=== PATIENT | male | born 1955 | race Caucasian/White ===

== ENCOUNTER 2018-06-03 06:30 | Day surgery (SDC) | payer OTHER ==
[2018-06-02 08:59] VITALS: BMI 27.4
[~2018-06-03 06:30] MED LIST: BUPIVACAINE HCL/PF (5 MG/ML) 30 ML VIAL IJ ONE; LIDOCAINE HCL 1%, 10 MG/ML (20ML VIAL) NR ONE; ceFAZolin SODIUM 1 GM VIAL IVPB ONE
[2018-06-03 07:10] LABS: INR 0.95 (0.83-1.09); PROTHROMBIN TIME (PATIENT) 11.2 SEC (9.7-13.0)
[2018-06-03] MEDS ORDERED: MIDAZOLAM HCL 2 MG/2 ML SINGLE DOSE VIAL ONE (07:19)
[2018-06-03] MEDS ORDERED: LIDOCAINE HCL 1%, 10 MG/ML (20ML VIAL) ONE (07:20)
[2018-06-03] MEDS ORDERED: BUPIVACAINE HCL/PF 0.5% (5MG/ML) 10 ML VIAL ONE (07:20)
[2018-06-03] MEDS ORDERED: LIDOCAINE HCL/PF 2% SDV 5ML VIAL ONE ×3 (07:21→08:16)
[2018-06-03] MEDS ORDERED: PROPOFOL 20 ML ONE ×2 (07:26→08:13)
[2018-06-03] MEDS ORDERED: ONDANSETRON 4 MG/2 ML VIAL IVPUSH PRN (07:44)
[2018-06-03] MEDS ORDERED: oxyCODONE HCL 5 MG TABLET PO PRN ×2 (07:44)
[2018-06-03] MEDS ORDERED: LACTATED RINGERS SOLUTION 1,000 ML IV SCH (07:45)
[2018-06-03] MEDS ORDERED: DEXAMETHASONE SOD PHOSPHATE 4 MG/1 ML VIAL ONE (08:12)
[2018-06-03] MEDS ORDERED: KETOROLAC TROMETHAMINE 30 MG/1 ML VIAL ONE (08:12)
--- NOTE | 2018-06-03 08:18 | HP ---
Satellite [facility] - Chief Complaint Chief Complaint: right hand contracture - Past Medical History Allergies/Adverse Reactions: Allergies Allergy/AdvReac Type Severity Reaction Status Date / Time No Known Drug Allergies Allergy Verified 06/02/18 09:02 - Current Medications Current Medications: Home Medications Medication Instructions Recorded Losartan Potassium 50 mg PO DAILY 06/02/18 Satellite Physical Exam - Physical Examination Vital Signs: Vital Signs Period Temp Pulse Resp BP Sys/Mejia Pulse Ox Last 24 Hr 97.9 F 55 18 129/77 98 General Appearance: Well Nourished, Well Developed, Alert & Oriented x3 ENT: Clear Lung: Normal air movement Heart: Regular rate & rhythm Extremities: Other (right hand- + cord, + contracture, nvi) Neurological: Intact, Alert, Oriented Satellite Impression/Plan - Impression/Plan Impression: right hand dupuytrens Operative Procedure: right hand dupuytrens excision Date to be Performed: 06/03/18
[2018-06-03] MEDS ORDERED: ceFAZolin SODIUM 1 GM VIAL IVPB ONE (08:20)
[2018-06-03] MEDS ORDERED: ceFAZolin SODIUM 1 GM VIAL ONE (08:21)
[2018-06-03] MEDS ORDERED: SODIUM CHLORIDE 0.9% P/F 10 ML VIAL IJ ONE (08:21)
[2018-06-03] MEDS ORDERED: BUPIVACAINE HCL/PF (5 MG/ML) 30 ML VIAL IJ ONE (08:28)
[2018-06-03] MEDS ORDERED: LIDOCAINE HCL 1%, 10 MG/ML (20ML VIAL) NR ONE (08:28)
--- NOTE | 2018-06-03 09:25 | OP ---
Operative Note - Note: Operative Date: 06/03/18 Pre-Operative Diagnosis: right hand Dupuytren's tissue, contracture, middle finger trigger finger Operation: right hand Dupuytren's excision, middle finger trigger release, tendon sheath excision, manipulation under anesthesia Post-Operative Diagnosis: Same as Pre-op Surgeon: Dilshad Arana Environmental Planning Engineer: Juaquin Au Anesthesiologist/WEALTH MANAGEMENT ADVISOR: Yony Rosado Anesthesia: Local, MAC Specimens Removed: Dupuytren's tissue, tendon sheath Estimated Blood Loss (mls): 0 Drains, Volume Out (mls): 0 Blood Volume Replaced (mls): 0 Fluid Volume Replaced (mls): 500 Operative Report Dictated: Yes
[2018-06-03 13:50] VITALS: BP 137/79; PULSE 60; TEMP 98
--- NOTE | 2018-06-04 00:54 | OP ---
DATE OF OPERATION: 06/03/2018 PREOPERATIVE DIAGNOSIS: Right hand Dupuytren's disease contracture middle finger and middle finger trigger finger. POSTOPERATIVE DIAGNOSIS: Right hand Dupuytren's disease contracture middle finger and middle finger trigger finger. PROCEDURE: 1. Right hand Dupuytren's excision. 2. Right middle finger trigger finger release. 3. Tendon sheath excision. 4. Manipulation under anesthesia. SURGEON: Dilshad Arana MD HARNESS PLACER: Juaquin Au MD; Yony Rosado MD ANESTHESIA: MAC anesthesia with local injection of 10 mL of 0.5% Marcaine and 1% lidocaine mixed. DRAINS: None. COMPLICATIONS: None. SPECIMEN: Right hand Dupuytren's tissue and tendon sheath. BLOOD LOSS: None. BLOOD GIVEN: None. FLUID REPLACEMENT: 500 mL. INDICATIONS: This patient is a 62-year-old male with a preoperative diagnosis of right hand Dupuytren's cord contracture of the middle finger MP joint and a middle finger trigger finger. After understanding the potential risks, complications, alternatives, and benefits of surgery versus nonsurgical treatment, the patient elected to undergo this procedure. DESCRIPTION OF PROCEDURE: Patient was brought to the operating room, peripheral IV placed, and IV sedation given. One gram of IV Ancef was given and MAC anesthesia was induced. The right upper extremity was prepped and draped in the sterile fashion. Elevated and exsanguinated with an Esmarch bandage and the tourniquet inflated to 250 mmHg. A zig-zag incision was marked out with a marking pen over the palm and 10 mL of 0.5% Marcaine with 1% lidocaine mixed was injected to the marked out incision. The entire case was done with a 3.8 Loupe magnification. A number 15 scalpel blade was used to cut down through the skin and subcutaneous tissue. Hemostasis was achieved with bipolar cautery. Dissection done with a Littauer scissors as well as a fresh number 15 scalpel blade, raising a full-thickness skin flap in an ulnar direction. Then, using both the number 15 scalpel blade and thee Littauer scissors, I did a careful dissection around an obvious Dupuytren's cord and nodule. It was excised distally and proximally and passed off of the field as a specimen. Several other connective tissue bands were cut. Manipulation under anesthesia was done. I was able to almost fully extend the middle finger PIP joint and MP joint. Next, under direct visualization, I did a middle finger trigger finger release and central one-third tendon sheath excision. I was able to check the distal and proximal extents of the release with the Radiant elevator. I then did another manipulation under anesthesia, concentrating regaining full extension of the MP joint. The area was copiously irrigated and washed out. Closure was done with 4-0 undyed Vicryl in the deep dermal layer. Final skin reapproximation was done with single interrupted 3-0 nylon sutures. The area was then washed and dried, covered with Xeroform gauze, 4 x 4 gauze, fluffs in the fingers, Webril, and a volar splint was applied and wrapped with Roger and Coban. Tourniquet was taken down after a total tourniquet time of about 40 minutes. There were no complications during the case. The patient tolerated the procedure well and was brought to the ambulatory recovery room in stable condition. Michelle [id number]
--- NOTE | 2018-06-04 17:34 | PATH ---
Surgical Pathology Report Patient Name: YUVAL BERNARD [facility]. Rec. #: [id number] /Age/Gender: 1955 (Age: 62) / M Account: [id number] Location: [facility] SURGICAL Taken: 06/03/2018 Received: 06/03/2018 Reported: 06/04/2018 Physicians: Michelle Roman M.D. Specimen(s) Received RIGHT DUPUYTREN'S TISSUE Clinical History Dupuytren's tissue Final Diagnosis RIGHT HAND DUPUYTREN'S TISSUE, EXCISION: DENSE FIBROCONNECTIVE TISSUE AND FIBROSYNOVIAL TISSUE WITH FIBROSIS AND FOCAL DEGENERATIVE CHANGE. Electronically Signed Kiko Rowe M.D. Gross Description Received in formalin labeled "Dupuytren's tissue right hand," is a 1.9 x 1.6 x 0.3 cm aggregate of gregg-yellow fibrous tissue fragments. The specimen is submitted in toto in one cassette. /06/03/201806/03/2018
== END 2018-06-03 12:45 | disposition home or self-care (01) ==
LOC: JASU-SURG 06:30
PROVIDERS: ATTEND Orthopaedic Surgery
PROC: 0LN70ZZ Release Right Hand Tendon, Open Approach (ICD-10-PCS; 2018-06-03)
PROC: 0JNJ0ZZ Release Right Hand Subcutaneous Tissue and Fascia, Open Approach (ICD-10-PCS; principal; 2018-06-03 08:00)
DX: M72.0 Palmar fascial fibromatosis [Dupuytren] (principal); M65.331 Trigger finger, right middle finger
CPT/HCPCS: 36415; 85610; 85730; 88304-TC; 94760

== ENCOUNTER 2018-09-27 06:00 | Emergency (ER) | payer OTHER ==
--- NOTE | 2018-09-27 06:07 | PDOC ---
History of Present Illness - General Chief Complaint: Laceration Stated Complaint: RT HAND 5TH FINGER LAC Time Seen by Provider: 09/27/18 06:06 - History of Present Illness Initial Comments: 09/27/18 07:11 This 63-year-old man with a history of hypertension presents with an injury to his right fifth finger. Patient states that he was cutting chicken in his kitchen out of approximately 2 AM last night when he accidentally cut the tip of his finger. Patient states that it was "almost cut off." He states that he placed pressure on the cut, reattached the area that was nearly cut off and placed Band-Aids on it. The patient states that he was then exhausted and went to sleep. No other injury sustained. Patient is unaware of his most recent tetanus immunization He denies difficulty in wound healing or resistant organism infection/ colonization Patient had Dupuytren's contracture repair by Dr. Au in May of this year. He states that it healed well and he has no complications of the procedure Patient states that he does not take his high blood pressure medication because he is "lazy". He denies any side effects from the losartan. He has not seen his PMD, in several months. Past History - Past Medical History Allergies/Adverse Reactions: Allergies Allergy/AdvReac Type Severity Reaction Status Date / Time No Known Drug Allergies Allergy Verified 06/02/18 09:02 Home Medications: Ambulatory Orders Losartan Potassium 50 mg PO DAILY 06/02/18 Amox-Tr/K Cl [Augmentin - 875Mg Tablet] 1 tab PO BID #14 tablet 09/27/18 Anemia: No Asthma: No Cancer: No Cardiac Disorders: No CVA: No COPD: No CHF: No Dementia: No Diabetes: No GI Disorders: No Disorders: (kidney stones) HTN: Yes Hypercholesterolemia: No Liver Disease: No Seizures: No Thyroid Disease: No - Surgical History Cholecystectomy: Yes - Suicide/Smoking/Psychosocial Hx Smoking History: Never smoked Have you smoked in the past 12 months: No Hx Alcohol Use: Yes (3days a week) Drug/Substance Use Hx: No Substance Use Type: Alcohol Hx Substance Use Treatment: No Procedures - Laceration/Wound Repair Right Distal 5th digit Wound Length: to 2.5 cm Wound Explored: no foreign body present Wound's Depth, Shape: flap Irrigated w/ Saline: Yes Betadine Prep: No (Hibiclens/Ethanol) Anesthesia: 1% Lidocaine Amount of Anesthetic (ccs): 2 Wound Repaired With: Sutures Suture Size/Type: 5:0 Number of Sutures: 8 Sterile Dressing Applied: Yes Splint Applied: Yes Progress: Right fifth finger prepped using Hibiclens/ethanol solution. 2 mL of 1% lidocaine infiltrated into the wound for local anesthesia. Wound thoroughly irrigated using 60 mL of sterile normal saline. No evidence of foreign body noted in the wound. Distal tip of finger has good capillary refill. Wound edges approximated and closed with 8 interrupted sutures of 5-0 nylon. After repair, distal portion of the wound continued to have good capillary refill. Bacitracin/sterile gauze/splint followed by second layer of sterile gauze applied. Patient tolerated procedure well *DC/Admit/Observation/Transfer Diagnosis at time of Disposition: Laceration of finger of right hand with damage to nail Qualifiers: Encounter type: initial encounter Finger: little finger Foreign body presence: without foreign body Qualified Code(s): S61.316A - Laceration without foreign body of right little finger with damage to nail, initial encounter - Discharge Dispostion Condition at time of disposition: Stable - Prescriptions Prescriptions: Amox-Tr/K Cl [Augmentin - 875Mg Tablet] 1 tab PO BID #14 tablet - Referrals Referrals: Juaquin Au MD [Staff Physician] - 24 hours - Patient Instructions Printed Discharge Instructions: How to Care for a Laceration After Repair Additional Instructions: keep original dressing in place, as dry as possible, until seen by Dr Au Call Dr Au tomorrow AM to arrange followup within 48 hrs Elevate right hand as much as possible Augmentin 875/125 twice a day, take with food if Dr Au not available within 48 hrs, see Dr Salinas or return here for wound check within 48 hours take your blood pressure medication as prescribed followup with Dr Salinas within 10 days for evaluation of blood pressure - Post Discharge Activity
[2018-09-27 06:12] VITALS: BP 187/105; PULSE 94; TEMP 97.8; BMI 27.4
[2018-09-27] MEDS ORDERED: DIPHTH,PERTUSS(ACELL),TET 0.5 ML DISP.SYRIN IM ONE ×2 (06:52→06:56)
[2018-09-27] MEDS ORDERED: AMOX TR/POT CLAV 875MG/125MG TABLETS (FP) PO ONE (06:52)
[2018-09-27] MEDS ORDERED: AMOX TR/POT CLAV 875MG/125MG TABLETS (FP) ONE (06:56)
== END 2018-09-27 07:15 | disposition home or self-care (01) ==
LOC: FER 06:00
PROC: 0HQFXZZ Repair Right Hand Skin, External Approach (ICD-10-PCS; principal; 2018-09-27)
PROC: 3E0234Z Introduction of Serum, Toxoid and Vaccine into Muscle, Percutaneous Approach (ICD-10-PCS; 2018-09-27)
DX: S61.316A Laceration without foreign body of right little finger with damage to nail, initial encounter (principal); I10 Essential (primary) hypertension; N20.0 Calculus of kidney; W26.0XXA Contact with knife, initial encounter; Y93.89 Activity, other specified; Y92.89 Other specified places as the place of occurrence of the external cause
CPT/HCPCS: 90715; 99281-25

== ENCOUNTER 2020-06-03 13:50 | Emergency (ER) | payer OTHER ==
[2020-06-03 14:06] VITALS: BP 137/82; PULSE 77; TEMP 98; BMI 28.2
== END 2020-06-03 16:16 | disposition home or self-care (01) ==
LOC: FER 13:50
DX: R04.0 Epistaxis (principal)
CPT/HCPCS: 99283-25